=== PATIENT | male | born 1965 | race Caucasian/White ===

== ENCOUNTER 2017-10-29 20:55 | Emergency (ER) | payer MEDICAID ==
[~2017-10-29] VITALS: Ht 170.2 cm; Wt 72.6 kg
[2017-10-29 21:26] VITALS: BP 161/90
[2017-10-29] MEDS ORDERED: PROPARACAINE HCL OPHTH 15 ML BOTTLE ONE (22:12)
[2017-10-29] MEDS ORDERED: PROPARACAINE HCL OPHTH 15 ML BOTTLE OP ONE (22:30)
== END 2017-10-29 23:08 | disposition home or self-care (01) ==
LOC: ER 20:58
DX: T15.12XA Foreign body in conjunctival sac, left eye, initial encounter (principal); F17.200 Nicotine dependence, unspecified, uncomplicated; X58.XXXA Exposure to other specified factors, initial encounter; Y93.89 Activity, other specified; Y92.89 Other specified places as the place of occurrence of the external cause; Y99.8 Other external cause status
CPT/HCPCS: A4606; Z7610